=== PATIENT | female | born 1995 | race Caucasian/White ===

== ENCOUNTER 2024-10-15 19:27 | Outpatient (REF) | payer BC, SELFPAY | END 2024-10-15 23:59 | disposition home or self-care (01) | LOC: RAD 19:27 | PROVIDERS: FAMILY PHYSICIAN Student in an Organized Health Care Education/Training Program | DX: S93.402A Sprain of unspecified ligament of left ankle, initial encounter (principal) | CPT/HCPCS: 73610 ==